=== PATIENT | male | born 1985 | race Caucasian/White ===

== ENCOUNTER 2020-06-10 18:32 | Emergency (ER) | payer OTHER, SELFPAY ==
[2020-06-10] VITALS (11 sets, daily range): BP systolic 135–145; BP diastolic 76–103; PULSE 77–93; RESP 18; TEMP 37.2; O2SAT 94–99; BMI 32.1
--- NOTE | 2020-06-10 19:11 | DI.RAD.S_ITS ---
PROCEDURE: XR KNEE LT 3V INDICATIONS: knee swelling, pain, unable to flex/extend/lift TECHNIQUE: 3 views of the knee were acquired. COMPARISON: None. FINDINGS: Bones: No fractures or dislocations. No suspicious bony lesions. Soft tissues: There is a large knee joint effusion. IMPRESSION: Large joint effusion without definite underlying bony abnormality. If pain persists, consider cross-sectional imaging with MRI to evaluate for soft tissue injury. Differential considerations include septic arthritis in the appropriate clinical setting. Dictated by: Charity Burnette M.D. on 06/10/2020 at 19:40 Approved by: Charity Burnette M.D. on 06/10/2020 at 19:41
--- NOTE | 2020-06-10 19:21 | ED_ITS ---
HPI - Extremity Problem <[facility] - Last Filed: 06/10/20 23:56> General Chief complaint: Extremity Problem,Nontraumatic Stated complaint: Left knee swelling and pain Time Seen by Provider: 06/10/20 18:55 Source: patient Mode of arrival: Family Vehicle Limitations: no limitations History of Present Illness HPI Narrative: This is a 35-year-old male, former smoker, who has history of gout in toes presents to ED with nontraumatic left knee pain and swelling since yesterday morning when he woke up. Patient reports pain increases with bearing weight and he is not able to flex or extend his leg. He is not able to lift up his left leg off the bed. Patient denies previous knee surgeries. Patient had sprained about 3 months ago and had pain for 1 day which resolved by wearing a knee brace. Patient had also experienced once his left knee gave out about a month ago without further problem. Patient denies fever, chills, nausea or vomiting. Patient has been using alternating aspirin and Motrin today and RICE therapy. Patient reports intact sensation distally and is able to move his toes without difficulty. Related Data Previous Rx's Medication Instructions Recorded indomethacin 50 mg PO TID #30 cap 06/10/20 Allergies Allergy/AdvReac Type Severity Reaction Status Date / Time No Known Drug Allergies Allergy Verified 06/10/20 19:05 Review of Systems <[facility] - Last Filed: 06/10/20 23:56> Review of Systems Narrative: General: Denies fever, chills, fatigue, malaise, sweats. HEENT: Denies sinus pain, ear pain, sore throat, difficulty swallowing, dizziness. Respiratory: Denies dyspnea, cough, wheezing, hemoptysis, sputum. Cardiovascular: Denies chest pain, palpitations, orthopnea, edema. Gastrointestinal: Denies nausea, vomiting, abdominal pain, diarrhea, constipation, melena. : Denies dysuria, frequency, incontinence, hematuria, urinary retention. Musculoskeletal: See HPI Skin: Denies rash, skin lesions, or other. Neurologic: Denies weakness, headache, numbness, change in speech, confusion, seizures, incoordination. Psychiatric: No concerning psychosocial issues. 12-point review of systems is negative except for those stated above. Patient History <Lalo ENRRIQUE Abdul - Last Filed: 06/10/20 23:56> Medical History GERD (gastroesophageal reflux disease) (Acute) Seasonal allergic reaction (Acute) Social History Smoking Status: Former smoker alcohol intake: current substance use type: does not use Exam <ENRRIQUE Sapp - Last Filed: 06/10/20 23:56> Narrative Exam Narrative: General appearance: well developed, well nourished, in no acute distress. Head: normocephalic, atraumatic, no scalp lesions, non-tender. ENT: Hearing grossly intact. Airway patent. Neck/Thyroid: neck supple, full range of motion, no visible masses or meningeal signs. No JVD, non-tender without lymphadenopathy. Skin: no suspicious rashes, lesions over visible areas. Warm and dry and appropriate color for ethnicity. Heart: no clubbing, no cyanosis, no edema. Lungs: Breathing even and unlabored. No stridor. No accessory muscles used. Able to speak in full sentences. Chest: normal shape and expansion. Abdomen: non-obese, non-distended. Neurologic: alert and oriented. Cognitive exam, [employer] and PNS grossly intact on informal exam. Psych: good eye contact, normal affect. Initial Vital Signs Initial Vital Signs: Vital Signs Temperature 98.9 F 06/10/20 19:00 Pulse Rate 93 H 06/10/20 19:00 Respiratory Rate 18 06/10/20 19:00 Blood Pressure 140/103 H 06/10/20 19:00 Pulse Oximetry 99 06/10/20 19:00 Extrem Left lower extremity: normal capillary refill, edema (Pre-infra patella, around the patella), knee Details: abnormal to inspection, tenderness Location: of the medial joint line, swelling Location: of the patella, of the pre-patellar area and of the infrapatellar area, abnormal ROM Details: unable to extend lower leg actively (Unable to lift up left leg), knee ligament exam abnormal and warmth Location: anteriorly, medially and laterally; no abrasions, no lacerations and no ecchymosis and foot Details: normal capillary refill, normal to inspection, toes with normal ROM, no edema and vascular exam Details: dorsalis pedis pulse present and normal capillary refill; no tenderness; abnormal to inspection and abnormal ROM <Demetrice Rosario MD - Last Filed: 06/11/20 02:57> Initial Vital Signs Initial Vital Signs: Vital Signs Temperature 98.9 F 06/10/20 19:00 Pulse Rate 93 H 06/10/20 19:00 Respiratory Rate 18 06/10/20 19:00 Blood Pressure 140/103 H 06/10/20 19:00 Pulse Oximetry 99 06/10/20 19:00 <Demetrice Rosario MD - Last Filed: 06/11/20 02:57> Bursa Procedure Time Out Performed: Yes Side of body: left Site of Procedure: other (L knee intra-articular) Antisepsis Used: Chlorhexidine Local Anesthetic: lidocaine 1% Amount of anesthesia used (mL): 1 Fluid obtained (mL): 25 Fluid Type: cloudy Patient Tolerated Procedure: Well Additional Comments: Knee aspirate sent for culture, Gram stain, cell count, crystals additional fluid sent should other studies need to be added Scores <ENRRIQUE Sapp - Last Filed: 06/10/20 23:56> GCS [place] coma scale eye opening: Spontaneous [place] coma scale verbal response: Orientated [place] coma scale motor response: Obey commands [place] coma scale total score: 15 qSOFA Altered Mental Status (GCS <15): No Respiratory rate greater than/equal to 22: No Systolic blood pressure less than or equal to 100: No qSOFA Total: 0 0-1 Not High Risk 1-3 High risk Course <ENRRIQUE Sapp - Last Filed: 06/10/20 23:56> Orders Ordered: ED Orders 06/10/20 19:11 XR knee LT 3V Stat 06/10/20 19:30 C-Reactive Protein Quant Stat Complete Blood Count AUTO DIFF Stat Erythrocyte Sedimentation Rate Stat Lactate (Lactic Acid) Stat Uric Acid Stat 06/10/20 21:28 Body Fluid Culture Stat Cell Count w Diff Body Fluid Stat Crystals Body Fluid - IN-HOUSE Stat Discontinued Medications Acetaminophen (Tylenol) 650 mg PO NOW ONE Stop: 06/10/20 19:12 Last Admin: 06/10/20 19:28 Dose: 650 mg Documented by: RACHEL Indomethacin (Indocin) 50 mg PO NOW ONE Stop: 06/10/20 23:31 Last Admin: 06/10/20 23:50 Dose: 50 mg Documented by: RACHEL Lidocaine HCl (Xylocaine 1% (Pf)) 2 ml INJ NOW ONE Stop: 06/10/20 20:40 Last Admin: 06/10/20 21:11 Dose: 2 ml Documented by: RACHEL Consultations Consultation #1: Dr. Rosario consulted with xray findings with leukocytosis, elevated CRP and HPI with physical findings concerns for joint infection. Dr. Randolph tapped the affected knee using US and aspetic technique and sole thick yellow cloudy fluid from the knee about 25 ml. Sending this out to lab for culture, gram stain, crystals and cell count. Patient tolerated the procedure well. Uric acid came back with mild elevation as 9.5. Time: 21:10 Vital Signs Vital signs: Vital Signs - 8 hr 06/10/20 19:00 06/10/20 20:08 06/10/20 21:11 Temperature 98.9 F Pulse Rate 93 H 81 81 Respiratory Rate 18 18 Blood Pressure 140/103 H 144/83 H Pulse Oximetry 99 97 95 06/10/20 21:29 06/10/20 21:30 06/10/20 22:00 Temperature Pulse Rate 86 85 86 Respiratory Rate 18 Blood Pressure 143/78 H 143/78 H Pulse Oximetry 95 95 97 06/10/20 22:46 06/10/20 22:48 06/10/20 23:00 Temperature Pulse Rate 87 87 86 Respiratory Rate Blood Pressure 135/76 135/76 Pulse Oximetry 95 96 94 06/10/20 23:30 06/10/20 23:56 Temperature Pulse Rate 87 77 Respiratory Rate Blood Pressure 145/84 H Pulse Oximetry 95 96 <Demetrice Rosario MD - Last Filed: 06/11/20 02:57> Orders Ordered: ED Orders 06/10/20 19:11 XR knee LT 3V Stat 06/10/20 19:30 C-Reactive Protein Quant Stat Complete Blood Count AUTO DIFF Stat Erythrocyte Sedimentation Rate Stat Lactate (Lactic Acid) Stat Uric Acid Stat 06/10/20 21:28 Body Fluid Culture Stat Cell Count w Diff Body Fluid Stat Crystals Body Fluid - IN-HOUSE Stat Discontinued Medications Acetaminophen (Tylenol) 650 mg PO NOW ONE Stop: 10/11/20 19:12 Last Admin: 06/10/20 19:28 Dose: 650 mg Documented by: RACHEL Indomethacin (Indocin) 50 mg PO NOW ONE Stop: 06/10/20 23:31 Last Admin: 06/10/20 23:50 Dose: 50 mg Documented by: RACHEL Lidocaine HCl (Xylocaine 1% (Pf)) 2 ml INJ NOW ONE Stop: 06/10/20 20:40 Last Admin: 06/10/20 21:11 Dose: 2 ml Documented by: RACHEL Vital Signs Vital signs: Vital Signs - 8 hr 06/10/20 19:00 06/10/20 20:08 06/10/20 21:11 Temperature 98.9 F Pulse Rate 93 H 81 81 Respiratory Rate 18 18 Blood Pressure 140/103 H 144/83 H Pulse Oximetry 99 97 95 06/10/20 21:29 06/10/20 21:30 06/10/20 22:00 Temperature Pulse Rate 86 85 86 Respiratory Rate 18 Blood Pressure 143/78 H 143/78 H Pulse Oximetry 95 95 97 06/10/20 22:46 06/10/20 22:48 06/10/20 23:00 Temperature Pulse Rate 87 87 86 Respiratory Rate Blood Pressure 135/76 135/76 Pulse Oximetry 95 96 94 06/10/20 23:30 06/10/20 23:56 Temperature Pulse Rate 87 77 Respiratory Rate Blood Pressure 145/84 H Pulse Oximetry 95 96 MDM - Extremity (Nontraumatic) <Lalo ENRRIQUE Abdul - Last Filed: 06/10/20 23:56> Differential Diagnosis Differential diagnosis: Likely other (joint infection, knee effusion, fracture, dislocation, arthritis, gout) Medical Records Attestation: I reviewed the patient's medical records. Lab Data Attestation: I reviewed the patient's lab results. Result diagrams: 06/10/20 19:30 Labs: Lab Results 06/10/20 06/10/20 06/10/20 Range/Units 19:30 19:30 19:30 WBC 16.5 H (4.5-11.0) X10^3/uL RBC 4.92 (4.5-5.9) X10^6/uL Hgb 14.9 (13.5-17.5) g/dL Hct 44.6 (41-53) % MCV 90.5 (80-100) fL MCH 30.4 (26-34) PG MCHC 33.5 (30-36) % RDW 13.4 (11.6-14.8) % Plt Count 247 (150-400) X10^3/uL Neut % (Auto) 76.1 H (50-75) % Lymph % (Auto) 12.6 L (25-40) % [place] % (Auto) 10.1 (3-14) % Eos % (Auto) 1.0 L (2-4) % Baso % (Auto) 0.2 (0-2) % Neut # (Auto) 98669 H (1932-0033) /uL Lymph # (Auto) 2100 (6083-3506) /uL [place] # (Auto) 1700 H (0-900) /uL Eos # (Auto) 200 (0-450) /uL Baso # (Auto) 0 (0-100) /uL ESR 9 (0-15) MM/HR Lactate 0.8 (0.7-2.1) mmol/L Uric Acid (3.5-8.5) mg/dL C-Reactive Protein 14.1 H (<1.0) mg/dL Fluid Color Fluid Appearance Fluid RBC /uL Fld Tot Nucleated Cell /uL Fluid Polynuclear WBCs % Fluid Mononuclear WBCs % Fluid Eosinophils Fluid Other Cells Fluid Crystals (NONE) Body Fluid Clot 06/10/20 06/10/20 06/10/20 Range/Units 19:30 21:28 21:28 WBC (4.5-11.0) X10^3/uL RBC (4.5-5.9) X10^6/uL Hgb (13.5-17.5) g/dL Hct (41-53) % MCV (80-100) fL MCH (26-34) PG MCHC (30-36) % RDW (11.6-14.8) % Plt Count (150-400) X10^3/uL Neut % (Auto) (50-75) % Lymph % (Auto) (25-40) % [place] % (Auto) (3-14) % Eos % (Auto) (2-4) % Baso % (Auto) (0-2) % Neut # (Auto) (9397-3013) /uL Lymph # (Auto) (3542-5732) /uL [place] # (Auto) (0-900) /uL Eos # (Auto) (0-450) /uL Baso # (Auto) (0-100) /uL ESR (0-15) MM/HR Lactate (0.7-2.1) mmol/L Uric Acid 9.5 H (3.5-8.5) mg/dL C-Reactive Protein (<1.0) mg/dL Fluid Color Yellow Fluid Appearance Cloudy Fluid RBC 1229 /uL Fld Tot Nucleated Cell 58790 /uL Fluid Polynuclear WBCs 94 % Fluid Mononuclear WBCs 6 % Fluid Eosinophils Not Reportable Fluid Other Cells Not Reportable Fluid Crystals Monosodium urate msu H (NONE) Body Fluid Clot No clots present Imaging Data XR-Knee LT: Radiologist's Impression: [address] [address] XRay Report Signed Patient: Dev GaryMR#: [id number] : 1985Acct:[id number] Age/Sex: 35 / MDate of Service: 06/10/20 Loc: ED Accession Number: [id number] Procedure: XR knee LT 3V Ordering Provider: Lalo Abdul PROCEDURE: XR KNEE LT 3V INDICATIONS: knee swelling, pain, unable to flex/extend/lift TECHNIQUE: 3 views of the knee were acquired. COMPARISON: None. FINDINGS: Bones: No fractures or dislocations. No suspicious bony lesions. Soft tissues: There is a large knee joint effusion. IMPRESSION: Large joint effusion without definite underlying bony abnormality. If pain persists, consider cross-sectional imaging with MRI to evaluate for soft tissue injury. Differential considerations include septic arthritis in the appropriate clinical setting. Dictated by: Charity Burnette M.D. on 06/10/2020 at 19:40 Approved by: Charity Burnette M.D. 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 Patient has been using aspirin and ibuprofen along RICE therapy the much improvement. Patient reports is unable to flex and lift left knee and pain increases with bearing weight. Patient denies fever, chills, nausea vomiting. Patient has intact sensation and pulses distally. X-ray test shows no fractures or dislocations but large knee joint effusion. Concerned for joint infection and blood test was done. There is leukocytosis of 16.5 [place] [address]#. Normal ESR but elevated CRP of 14.1. Lactate was normal. Slightly elevated uric acid of 9.5. Dr. Rosario consulted with physical, lab, xray findings and HPI. Dr. Roasrio sole joint fluid using ultrasound and 25ml of yellow cloudy joint fluid has sent out to lab for crystals, gram stain, cell count and culture. Joint fluid analysis showed fluid pollen you clear WBC of 94 with mononuclear WBC of 6. There is high Monosodium urate seen. Micro organism was seen but man y WBC on Gram stain. Cultures are pending. 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 dose. Patient advised to follow-up with orthopedist next couple of days and to use crutches for ambulation and use Neil wrap for comf ort. Advised to take Tylenol as needed for discomfort. Return precautions were discussed with patient and he verbalized understanding in agreement with the treatment plan. <Demetrice Rosario MD - Last Filed: 06/11/20 02:57> Lab Data Labs: Lab Results 06/10/20 06/10/20 06/10/20 Range/Units 19:30 19:30 19:30 WBC 16.5 H (4.5-11.0) X10^3/uL RBC 4.92 (4.5-5.9) X10^6/uL Hgb 14.9 (13.5-17.5) g/dL Hct 44.6 (41-53) % MCV 90.5 (80-100) fL MCH 30.4 (26-34) PG MCHC 33.5 (30-36) % RDW 13.4 (11.6-14.8) % Plt Count 247 (150-400) X10^3/uL Neut % (Auto) 76.1 H (50-75) % Lymph % (Auto) 12.6 L (25-40) % [place] % (Auto) 10.1 (3-14) % Eos % (Auto) 1.0 L (2-4) % Baso % (Auto) 0.2 (0-2) % Neut # (Auto) 89506 H (1196-7909) /uL Lymph # (Auto) 2100 (7277-5197) /uL [place] # (Auto) 1700 H (0-900) /uL Eos # (Auto) 200 (0-450) /uL Baso # (Auto) 0 (0-100) /uL ESR 9 (0-15) MM/HR Lactate 0.8 (0.7-2.1) mmol/L Uric Acid (3.5-8.5) mg/dL C-Reactive Protein 14.1 H (<1.0) mg/dL Fluid Color Fluid Appearance Fluid RBC /uL Fld Tot Nucleated Cell /uL Fluid Polynuclear WBCs % Fluid Mononuclear WBCs % Fluid Eosinophils Fluid Other Cells Fluid Crystals (NONE) Body Fluid Clot 06/10/20 06/10/20 06/10/20 Range/Units 19:30 21:28 21:28 WBC (4.5-11.0) X10^3/uL RBC (4.5-5.9) X10^6/uL Hgb (13.5-17.5) g/dL Hct (41-53) % MCV (80-100) fL MCH (26-34) PG MCHC (30-36) % RDW (11.6-14.8) % Plt Count (150-400) X10^3/uL Neut % (Auto) (50-75) % Lymph % (Auto) (25-40) % [place] % (Auto) (3-14) % Eos % (Auto) (2-4) % Baso % (Auto) (0-2) % Neut # (Auto) (4725-6848) /uL Lymph # (Auto) (3056-6895) /uL [place] # (Auto) (0-900) /uL Eos # (Auto) (0-450) /uL Baso # (Auto) (0-100) /uL ESR (0-15) MM/HR Lactate (0.7-2.1) mmol/L Uric Acid 9.5 H (3.5-8.5) mg/dL C-Reactive Protein (<1.0) mg/dL Fluid Color Yellow Fluid Appearance Cloudy Fluid RBC 1229 /uL Fld Tot Nucleated Cell 80881 /uL Fluid Polynuclear WBCs 94 % Fluid Mononuclear WBCs 6 % Fluid Eosinophils Not Reportable Fluid Other Cells Not Reportable Fluid Crystals Monosodium urate msu H (NONE) Body Fluid Clot No clots present Discharge Plan Departure Patient Disposition: Home Clinical Impression: Joint effusion of knee Qualifiers: Laterality: left Qualified Code(s): M25.462 - Effusion, left knee Gout Qualifiers: Gout site: knee Gout etiology: unspecified cause Chronicity: acute Laterality: left Qualified Code(s): M10.9 - Gout, unspecified Discharge Date/Time: 06/11/20 00:03 Instructions: DI for Gout, DI for Knee Effusion Activity Restrictions/Additional Instructions: You have been diagnosed with [left knee effusion likely from gout.]. What to do: *Take your medications as directed. Please take indomethacin which is a strong NSAIDS for gout. You can take 3 times a day with food to decrease GI irritation. You can discontinue 2-3 days after your symptoms completely resolved. Please do not take additional ibuprofen or aspirin with this. You can take [id number] Tylenol as needed for discomfort. You can use crutches for ambulation if bearing weight increases pain. Use Neil wrap as needed for support and pain. Indomethacin has been transmitted to [facility]. *Follow up with your primary care provider and orthopedist in 2-3 days, call for an appointment. Let them know you were seen in the ED and that we asked you to be seen in follow up. *Return to ED if you have any new, worsening, or concerning symptoms, such as [fever, chills, redness/warmth/swelling increases in left knee, chest pain, breathing difficulty, unable to tolerate fluids or any acute concerns]. Prescriptions: New indomethacin 50 mg capsule 50 mg PO TID Qty: 30 RF: 0 Referrals: [facility] [Provider Group] [facility] [Outside] Stand Alone Forms: Work Release Note <Demetrice Rosario MD - Last Filed: 06/11/20 02:57> Cosign ED Attending Cosignature Attestation: I was immediately available in the department for consultation throughout this patient's visit. I agree with documentation as above. Demetrice Rosario MD
[2020-06-10] MEDS: ACETAMINOPHEN 325 MG TABLET 650 MG PO (19:28)
[2020-06-10 19:44] LABS: Add Manual Diff / Slide Review NO; Basophils Absolute Auto 0 /uL (0-100); Basophils Percent Auto 0.2 % (0-2); Eosinophils Absolute Auto 200 /uL (0-450); Hematocrit 44.6 % (41-53); Hemoglobin 14.9 g/dL (13.5-17.5); Lymphocytes Absolute Auto 2100 /uL (1100-4500); Lymphocytes Percent Auto 12.6 % (25-40); Mean Corpuscular HGB Conc 33.5 % (30-36); Mean Corpuscular Hemoglobin 30.4 PG (26-34); Mean Corpuscular Volume 90.5 fL (80-100); Monocytes Absolute Auto 1700 /uL (0-900); Monocytes Percent Auto 10.1 % (3-14); Neutrophils Absolute Auto 12500 /uL (1500-7000); Neutrophils Percent Auto 76.1 % (50-75); Platelet Count 247 X10^3/uL (150-400); Red Blood Cell Count 4.92 X10^6/uL (4.5-5.9); Red Cell Distribution Width 13.4 % (11.6-14.8); White Blood Cell Count 16.5 X10^3/uL (4.5-11.0)
[2020-06-10 19:58] LABS: Lactate (Lactic Acid) 0.8 mmol/L (0.7-2.1)
[2020-06-10 20:12] LABS: C-Reactive Protein Quant 14.1 mg/dL (<1.0)
[2020-06-10 20:30] LABS: Erythrocyte Sedimentation Rate 9 MM/HR (0-15)
[2020-06-10 20:59] LABS: Uric Acid 9.5 mg/dL (3.5-8.5)
[2020-06-10] MEDS: LIDOCAINE 1% (PF) 2 ML INJ (21:11)
[2020-06-10 22:20] LABS: Body Fluid Red Blood Cells 1229 /uL; Body Fluid Tot Nucleated Cells 32083 /uL
[2020-06-10 22:21] LABS: Body Fluid Appearance CLOUDY; Body Fluid Clotted? NO CLOTS PRESENT; Body Fluid Color YELLOW
[2020-06-10 22:46] LABS: Mononuclear WBC Body Fluid 6 %; Polynuclear WBC Body Fluid 94 %
[2020-06-10 23:19] LABS: Crystals Body Fluid - IN-HOUSE Monosodium Urate MSU
[2020-06-10] MEDS: INDOMETHACIN 25 MG CAPSULE 50 MG PO (23:50)
== END 2020-06-11 00:03 | disposition home or self-care (01) ==
PROVIDERS: Emergency Provider Nurse Practitioner Family
DX: M25.462 Effusion, left knee (principal); M10.9 Gout, unspecified
CPT/HCPCS: 20610; 36415; 73562; 83605; 84550; 85025; 85651; 86140; 87070; 87075; 87205; 89051; 89060; 99284